=== PATIENT | male | born 1975 | race Caucasian/White ===

== ENCOUNTER 2019-04-07 16:25 | Emergency (ER) | payer SELFPAY ==
[~2019-04-07] VITALS: Ht 185.4 cm; Wt 108.9 kg
[2019-04-07 16:55] VITALS: BP 149/98
--- NOTE | 2019-04-07 19:26 | NUR ---
PT TAKEN TO XRAY VIA WC.
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
[2019-04-07] MEDS ORDERED: traMADol 50 MG TAB PO ONE (20:20)
[2019-04-07 20:46] VITALS: BP 136/85
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
== END 2019-04-07 20:46 | disposition home or self-care (01) ==
LOC: MED 16:25
DX: M25.511 Pain in right shoulder (principal); Z88.6 Allergy status to analgesic agent; V43.62XA Car passenger injured in collision with other type car in traffic accident, initial encounter; Y93.89 Activity, other specified; Y92.488 Other paved roadways as the place of occurrence of the external cause; Y99.8 Other external cause status
CPT/HCPCS: 73030; 73502; 99283